=== PATIENT | female | born 1980 | race Caucasian/White ===

== ENCOUNTER → 2021-02-18 10:16 | Outpatient (BNVA) | payer BC, SELFPAY | PROVIDERS: PCP Nurse Practitioner Family; Visit Provider Nurse Practitioner Family | DX: R35.0 Frequency of micturition (principal); R39.15 Urgency of urination | CPT/HCPCS: 81003; 87086 ==

== ENCOUNTER 2021-07-05 17:06 | Emergency (ER) | payer BC, SELFPAY ==
[2021-07-05 17:15] VITALS: BMI 24.3
[2021-07-05 17:19] VITALS: BP 150/88; PULSE 109; RESP 20; TEMP 37; O2SAT 100
--- NOTE | 2021-07-05 17:47 | ECG_ITS ---
[facility] Test Date: 2021-07-05 Pat Name: FADUMO PARTIDA (GINA) Department: Room: Gender: Female Bureau Director: : 1980 Requested By: Anthony Null Order Number: [id number] Gretta MD: Daryn Coleman M.D. Measurements Intervals [place] Rate: 109 P: 52 WV: 196 QRS: 58 QRSD: 92 T: 23 QT: 334 QTc: 451 Interpretive Statements SINUS TACHYCARDIA ABNORMAL RHYTHM ECG No previous ECG available for comparison Electronically Signed On 07-06-2021 6:58:12 CORRESPONDENCE SCHOOL TEACHER by Daryn Coleman M.D. [id number]
--- NOTE | 2021-07-05 17:47 | ED_ITS ---
HPI - Dizziness General: Chief Complaint: Dizziness Stated Complaint: ANXIETY Time Seen by Provider: 07/05/21 17:28 History of Present Illness: HPI Narrative: Patient states he felt dizzy throughout the day while at work. Says she is been under a lot of stress. Patient went to the clinic and they did not have a provider there and the nurse called ambulance because patient complained about dizziness. Patient said she felt like she was going to pass out. Dizziness has been intermittent. Patient denies any other health problems here recently. Associated symptoms: Denies chest pain, chills, headache(s), nausea or vomiting Review of Systems Const: Denies: fever(s), chills or body aches Eyes: Denies: eye discomfort ENMT: Denies: throat pain Card: Denies: chest pain Resp: Denies: dyspnea GI: Denies: abdominal pain, nausea or vomiting Skin/Breast: Denies: rash Neuro: Reports: dizziness; Denies: headache(s) Psych: Denies: depression or suicidal ideation PFS ED PFSH: Surgical History (Updated 02/18/21 @ 10:25 by ALMA Alexander) Status post delivery Family History (Updated 02/18/21 @ 10:33 by ALMA Alexander) Mother Cancer Ovarian Cancer Unknown Cancer Ovarian Cancer Social History (Updated 02/18/21 @ 10:14 by Charito Steiner LPN) Smoking and tobacco status: never smoked Alcohol intake: current Physical Exam Const: COMMON NORMALS: no acute distress, patient oriented x3 and alert HENMT: COMMON NORMALS: normocephalic and external ears normal HEAD & SCALP: normocephalic EXTERNAL EAR: Yes external ears normal TYMPANIC MEMBRANE: TM abnormal TM laterality: left Details: bulging and fluid behind TM Eye: COMMON NORMALS: EOMs intact bilaterally Neck/C-Spine: COMMON NORMALS: no JVD Lymph: LYMPHATIC: lymphadenopathy left anterior cervical Resp: COMMON NORMALS: normal respiratory effort and No use of accessory muscles Cardio: COMMON NORMALS: no JVD RATE: tachycardic GI: INSPECTION: Yes normal to inspection Extremity: COMMON NORMALS: normal to inspection and full ROM Neuro: COMMON NORMALS: patient oriented x3 SENSORIUM/ORIENTATION: Yes alert SPEECH: speech normal GAIT: Yes Normal gait present PUPIL EXAM: Normal pupillary reactivity/response: bilateral Psych: COMMON NORMALS: mental status grossly normal Skin: COMMON NORMALS: no rashes or lesions noted GENERAL SKIN EXAM: no rashes or lesions noted Course Vital Signs: Vital signs: Vital Signs Temperature 98.6 F 07/05/21 17:19 Pulse Rate 109 H 07/05/21 17:19 Respiratory Rate 20 H 07/05/21 17:19 Blood Pressure 150/88 07/05/21 17:19 Pulse Oximetry 100 07/05/21 17:19 MDM - Dizziness Medical Decision Making Patient with anxiety, left otitis media, dizziness. Patient's vital signs stable except the patient was slightly tachycardic 109 bpm patient should not was seen at the clinic by the nurse and was sent here for dizziness. Patient said she been dizzy mostly. Patient has fluid in left ear has tenderness to the left ear into the left anterior cervical area. Said she has some dizziness with moving her head quickly. Patient try to take medication follow-up primary care provider on Thursday significant improvement. EKG Data EKG 1: Interpretation: Sinus tachycardia ventricular rate 109 bpm AR interval 196 ms QRS duration 92 ms QT is 334 ms. Discharge Plan Discharge Patient Disposition: Home Clinical Impression: Dizziness Otitis media Qualifiers: Otitis media type: serous Chronicity: acute Laterality: left Recurrence: non- recurrent Qualified Code(s): H65.02 - Acute serous otitis media, left ear Condition: Stable Prescriptions: New meclizine 25 mg tablet 25 mg PO TID PRN (Reason: dizziness) Qty: 14 0RF Bactrim DS 800-160 mg tablet 1 tab PO BID 7 Days Qty: 14 0RF No Action ciprofloxacin HCl [Cipro] 250 mg tablet 250 mg PO BID 5 Days Qty: 10 0RF Discharge Orders: Discharge ED (Routine); Ordered 07/05/21 Ordered By: Anthony Null Referrals: RONAK Winslow, COMPUTER TECHNICIAN [Primary Care Provider] - Discharge Diet: Usual diet Discharge Activity: Increase activity as tolerated Patient Instructions: Earache (ED), Dizziness (ED) Activity Restrictions/Additional Instructions: Follow-up with medical provider as directed. Take medications as prescribed. Return to the ER or your medical provider if condition worsens. Please read and understand discharge instructions. If any questions ask please. Coding Level of Care Code ED Tile Applicator for Chg Fwd Exam Comprehensive
[2021-07-05] MEDS: sulfamethoxazole-trimeth DS 160-800 mg Tablet 1 TAB PO (18:35)
[2021-07-05] MEDS: meclizine 25 mg tablet PO (18:35)
== END 2021-07-05 18:42 | disposition home or self-care (01) ==
PROVIDERS: Emergency Provider Nurse Practitioner Family; PCP Nurse Practitioner Family
DX: R42 Dizziness and giddiness (principal); H65.02 Acute serous otitis media, left ear
CPT/HCPCS: 93005; 99283; J8597

== ENCOUNTER → 2023-01-01 13:07 | Outpatient (BNVA) | payer OTHER, SELFPAY | PROVIDERS: PCP Nurse Practitioner; Visit Provider Nurse Practitioner Family | DX: U07.1 COVID-19 (principal); B34.9 Viral infection, unspecified | CPT/HCPCS: 87426 ==

== ENCOUNTER 2023-02-12 06:00 | Outpatient (RCR) | payer OTHER, SELFPAY | END 2023-03-10 23:59 | disposition home or self-care (01) | LOC: WPT 06:00 | PROVIDERS: Visit Provider Nurse Practitioner Family | DX: S93.401D Sprain of unspecified ligament of right ankle, subsequent encounter (principal); X58.XXXD Exposure to other specified factors, subsequent encounter | CPT/HCPCS: 97110; 97112; 97116; 97161; 97530 ==

== ENCOUNTER → 2024-08-03 10:33 | Outpatient (BNVA) | payer SELFPAY | PROVIDERS: PCP Nurse Practitioner Family; Visit Provider Nurse Practitioner Family | DX: R10.9 Unspecified abdominal pain (principal); K59.04 Chronic idiopathic constipation; R53.83 Other fatigue | CPT/HCPCS: 74018; 80074 ==

== ENCOUNTER 2024-08-04 06:32 | Emergency (ER) | payer SELFPAY ==
[2024-08-04 06:38] VITALS: BP 142/101; PULSE 79; RESP 18; TEMP 36.7; O2SAT 100; BMI 29.5
--- NOTE | 2024-08-04 06:50 | W.ED.DIZZY ---
HPI - Dizziness General: Chief Complaint: Dizziness Stated Complaint: dizziness/nausea Time Seen by Provider: 08/04/24 06:34 History of Present Illness: HPI Narrative: 43-year-old female who presents to the emergency room with complaints of dizziness and nausea. This been going on for several weeks. There is a note from the [facility] where she had some dizziness nausea near syncopal episode and was life flighted from the clinic to [facility] in [place]. There is a cardiac workup done by her description no significant findings she was started on metoprolol. Patient reports that she has had fever daily which she measured at 99.6 and 99.9. The dizziness is very positional. When I came in the room lab had already been there and had drawn blood she states her dizziness got much worse lab general utility maintenance repairer was sitting with the patient until I arrived. When I went to lay her down to do a portion of her exam she reports her symptoms worsened significantly. She denies any chest pain or abdominal pain. No bowel or bladder symptoms. Associated symptoms: Denies chest pain or chills Related Data Home Medications ?Medication ?Instructions ?Recorded ?Confirmed metoprolol tartrate 25 mg tablet 12.5 mg PO BID 07/06/24 08/04/24 acetaminophen 500 mg tablet 1,000 mg PO Q6H PRN Pain 08/04/24 08/04/24 (Tylenol Extra Strength) Previous Rx's ?Medication ?Instructions ?Recorded ferrous gluconate 324 mg (37.5 mg 324 mg PO DAILY 30 days #30 tabs 08/03/24 iron) tablet lorazepam 1 mg tablet (Ativan) 1 mg PO Q8H PRN dizziness or 08/04/24 vertigo #10 tabs Allergies Allergy/AdvReac Type Severity Reaction Status Date / Time No Known Allergies Allergy Verified 08/04/24 06:42 Review of Systems Const: Denies: fever(s) or chills Card: Denies: chest pain Resp: Denies: dyspnea GI: Denies: abdominal pain : Denies: dysuria, urinary frequency or urinary urgency Musc: Denies: neck pain or back pain Skin/Breast: Denies: rash Neuro: Reports: dizziness PFSH ED PFSH: Medical History Chronic idiopathic constipation Abdominal pain Iron deficiency anemia Fatigue Arrhythmia Orthostatic hypotension Palpitations Vertigo TMJ tenderness, bilateral Headache Encounter for screening for cardiovascular disorders Medication management Eustachian tube disorder Sinusitis Anxiety Surgical History Status post delivery Family History Mother Cancer Ovarian Cancer Unknown Cancer Ovarian Cancer Social History Smoking and tobacco/nicotine status: never used tobacco/nicotine Alcohol intake: current Substance/Drug Use: never Physical Exam Const: COMMON NORMALS: no acute distress GENERAL APPEARANCE: cooperative ORIENTATION/CONSCIOUSNESS: Yes awake, Yes oriented to person, Yes oriented to place and Yes oriented to time HENMT: COMMON NORMALS: normocephalic, atraumatic and hearing grossly normal bilaterally HEAD & SCALP: normocephalic and atraumatic OTHER: No nystagmus Resp: COMMON NORMALS: normal respiratory effort, No retractions, No use of accessory muscles and clear to auscultation bilaterally AUSCULTATION: clear to auscultation bilaterally Cardio: COMMON NORMALS: regular rate, regular rhythm and No murmurs present (Cardio) RATE: regular rate RHYTHM: regular rhythm GI: COMMON NORMALS: Soft to palpation and No hepatosplenomegaly present AUSCULTATION: Yes normoactive bowel sounds PALPATION: Yes Soft to palpation, No Tenderness to palpation present (GI), No Guarding due to palpation present (GI) and Yes No hepatosplenomegaly present Extremity: COMMON NORMALS: normal to inspection, capillary refill normal, no clubbing, cyanosis or edema, no calf tenderness and no pedal edema Neuro: SENSORIUM/ORIENTATION: Yes oriented to person, Yes oriented to place and Yes oriented to time Skin: COMMON NORMALS: no rashes or lesions noted GENERAL SKIN EXAM: no rashes or lesions noted Course Vital Signs: Vital signs: Vital Signs Temperature 98.0 F 08/04/24 06:38 Pulse Rate 88 08/04/24 12:39 Respiratory Rate 18 08/04/24 06:38 Blood Pressure 123/85 08/04/24 12:39 Pulse Oximetry 100 08/04/24 12:39 Oxygen Delivery Me thod Room Air 08/04/24 11:30 MDM - Dizziness Medical Decision Making Patient has not had any tachyarrhythmias. We got old records from her previous hospitalization there was concern of V. tach she was given amiodarone and flown to [facility] cardiology reviewed that they could felt it was more artifact and did not have any other recurrent arrhythmias. She has had no arrhythmias while she has been here. Her exam is otherwise unremarkable her symptoms are somewhat reproducible when moving her head she got improved with medications given will discharge patient home have her follow-up with her primary care doctor continue previously planned cardiology workup. Of interest her TSH is elevated and she was checked previously at [place] it was not increase it is now. This needs to be followed up as an outpatient as well Lab Data 08/04/24 06:59 08/04/24 06:59 Radiology Impressions Chest X-Ray 08/04/24 06:57 IMPRESSION: 1. Normal chest. Laboratory Results WBC 4.78 10^3/uL (3.29-11.43) 08/04/24 06:59 RBC 4.48 10^6/uL (3.85-5.65) 08/04/24 06:59 Hgb 10.60 g/dL (11.27-16.99) L 08/04/24 06:59 Hct 35.6 % (36-47) L 08/04/24 06:59 MCV 79.5 fl (85-98) L 08/04/24 06:59 MCH 23.7 pg (27-33) L 08/04/24 06:59 MCHC 29.8 g/dL (30-55) L 08/04/24 06:59 RDW 16.9 % (12.1-15.1) H 08/04/24 06:59 Plt Count 254 10^3/cmm (157-399) 08/04/24 06:59 MPV 11.5 fL (7.4-10.4) H 08/04/24 06:59 Neut % (Auto) 56.6 % 08/04/24 06:59 Lymph % (Auto) 34.9 % 08/04/24 06:59 Falls % (Auto) 5.6 % 08/04/24 06:59 Eos % (Auto) 2.1 % 08/04/24 06:59 Baso % (Auto) 0.6 % 08/04/24 06:59 Neut # (Auto) 2.70 10^3/uL (1.8-7.7) 08/04/24 06:59 Lymph # (Auto) 1.7 10^3/uL (0.8-4.8) 08/04/24 06:59 Falls # (Auto) 0.3 10^3/uL (0.2-0.9) 08/04/24 06:59 Eos # (Auto) 0.1 10^3/uL (0.0-0.8) 08/04/24 06:59 Baso # (Auto) 0.0 10^3/uL (0.0-0.1) 08/04/24 06:59 Nucleated RBC % (auto) 0 % 08/04/24 06:59 Nucleated RBCs # 0.0 /100WBC 08/04/24 06:59 Sodium 137 mmol/L (136-145) 08/04/24 06:59 Potassium 3.9 mmol/L (3.5-5.1) 08/04/24 06:59 Chloride 102 mmol/L (98-107) 08/04/24 06:59 Carbon Dioxide 21 mmol/L (22-29) L 08/04/24 06:59 Anion Gap 17.9 (5-19) 08/04/24 06:59 BUN 8 mg/dL (6-20) 08/04/24 06:59 Creatinine 0.7 mg/dL (0.5-0.9) 08/04/24 06:59 GFR Calculation 90.5 mL/min (90-130) 08/04/24 06:59 Glucose 95 mg/dL (65-115) 08/04/24 06:59 Calculated Osmolality 282 mOsm/kg (285-295) L 08/04/24 06:59 Calcium 9.0 mg/dL (8.5-10.5) 08/04/24 06:59 Total Bilirubin 0.5 mg/dL (0.15-1.2) 08/04/24 06:59 AST 18 U/L (0-32) 08/04/24 06:59 ALT 23 U/L (0-33) 08/04/24 06:59 Alkaline Phosphatase 102 U/L (35-105) 08/04/24 06:59 Troponin T Baseline < 6 ng/L (0-10) 08/04/24 06:59 Troponin T 120 Minute 6.00 ng/L (0-10) 08/04/24 09:09 Delta Troponin T 0.79371 ABS# (0-10) 08/04/24 09:09 Total Protein 7.5 g/dL (6.6-8.7) 08/04/24 06:59 Albumin 4.5 g/dL (3.5-5.2) 08/04/24 06:59 Globulin 3.0 g/dL (1.3-4.6) 08/04/24 06:59 TSH 4.65 uIU/mL (0.27-4.20) H 08/04/24 06:59 Urine Color Yellow (Yellow) 08/04/24 07:15 Urine Appearance Cloudy (CLEAR) A 08/04/24 07:15 Urine pH 7.5 (5-7) 08/04/24 07:15 Ur Specific [place] 1.005 (1.005-1.030) 08/04/24 07:15 Urine Protein Negative (Negative) 08/04/24 07:15 Urine Glucose (UA) Negative (Normal) 08/04/24 07:15 Urine Ketones Negative (Negative) 08/04/24 07:15 Urine Blood 1+ (Negative) A 08/04/24 07:15 Urine Nitrate Negative (Negative) 08/04/24 07:15 Urine Bilirubin Negative (Negative) 08/04/24 07:15 Urine Urobilinogen 0.2 mg/dL (Negative) 08/04/24 07:15 Ur Leukocyte Esterase Negative (Negative) 08/04/24 07:15 Urine RBC 0-2 /hpf (0-2) 08/04/24 07:15 Urine WBC 0-5 /hpf (0-5) 08/04/24 07:15 Ur Squamous Epith Cells 0-5 /hpf (0-5) 08/04/24 07:15 Amorphous Sediment Not Reportable 08/04/24 07:15 Urine Bacteria None seen /hpf (NONE) 08/04/24 07:15 Hyaline Casts 0-4 /lpf H 08/04/24 07:15 All radiology interpretation(s) finalized by discharge Discharge Plan Discharge Patient Disposition: Home Clinical Impression: Benign paroxysmal positional vertigo, Tachycardia, Elevated TSH Condition: Stable Prescriptions: New lorazepam [Ativan] 1 mg tablet 1 mg PO Q8H PRN (Reason: dizziness or vertigo) Qty: 10 0RF No Action metoprolol tartrate 25 mg tablet 12.5 mg PO BID ferrous gluconate 324 mg (37.5 mg iron) tablet 324 mg PO DAILY 30 Days Qty: 30 1RF acetaminophen [Tylenol Extra Strength] 500 mg Tablet 1,000 mg PO Q6H PRN (Reason: Pain) Discharge Orders: Discharge ED (Routine); Ordered 08/04/24 Ordered By: Davy Clay Referrals: RONAK Winslow, CUSTOMER RELATIONS COORDINATOR [Primary Care Provider] - Discharge Diet: Usual diet Discharge Activity: Increase activity as tolerated Patient Instructions: Benign Paroxysmal Positional Vertigo (ED), Opioid Safety, Pain Management Activity Restrictions/Additional Instructions: Thank you for choosing [facility] for your healthcare needs today. It is very important that you follow up as instructed or that you return to the Emergency Department should you have concerns or if your condition changes or worsens in any way. You were seen in the emergency room with complaint of dizziness and rapid heart rate. We obtained records from your previous evaluation at [facility] in [place] from a month ago and your life flighted from the [facility]. We reviewed the records. There was a concern of a rapid heart rate however cardiology is senior in [place] did not feel it was a significant arrhythmia ultimately were discharged from there with medications for the dizziness. Your symptoms today seem to be similar in nature as far as a irritation to the inner ear causing positional vertigo. You were given Ativan in the emergency room which did seem to improve it. We did note that in comparison to labs done at your hospitalization in [place] a month ago your hemoglobin is gone down by 1 g and your thyroid labs are slightly increased both of these should be followed up by your primary care doctor as an outpatient. You were given Ativan to use as needed for dizziness. Continue your other medications as previously prescribed. Print Language: Bulgarian Coding Level of Care Code ED Infant And Toddler Teacher for Asif Jenkins
--- NOTE | 2024-08-04 06:55 | ECG_ITS ---
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 Measurements Intervals [place] Rate: 76 P: 67 ID: [id number] QRS: 60 QRSD: 76 T: 38 QT: 362 QTc: 408 Interpretive Statements SINUS RHYTHM LOW QRS VOLTAGE IN PRECORDIAL LEADS [QRS DEFLECTION < 1.0 mV IN CHEST LEADS] NONSPECIFIC ST & T-WAVE ABNORMALITY Compared to ECG 07/05/2021 18:20:40 Low QRS voltage now present T-wave abnormality now present Sinus tachycardia no longer present Electronically Signed On 08-04-2024 22:21:10 CDT by Scottie Giron M.D. [id number] [id number]
--- NOTE | 2024-08-04 06:57 | XR_ITS ---
WS: [id number] Exam: XR chest 1V portable [id number] Date/Time of Exam: 08/04/2024 7:12 AM Reason For Exam: dyspnea/cough No priors. Lungs are fully expanded and clear. Normal cardiomediastinal silhouette and regional bony elements. No pleural effusion. XR/XR chest 1V portable [id number] IMPRESSION: 1. Normal chest.
[2024-08-04 07:13] LABS: Basophils % 0.6 %; Eosinophils # 0.1 10^3/uL (0.0-0.8); Eosinophils % 2.1 %; Hematocrit 35.6 % (36-47); Lymphocytes # 1.7 10^3/uL (0.8-4.8); Lymphocytes % 34.9 %; Mean Corpuscular HGB Conc 29.8 g/dL (30-55); Mean Corpuscular Hemoglobin 23.7 pg (27-33); Mean Corpuscular Volume 79.5 fl (85-98); Mean Platelet Volume 11.5 fL (7.4-10.4); Monocytes # 0.3 10^3/uL (0.2-0.9); Monocytes % 5.6 %; Neutrophils % 56.6 %; Nucleated Red Blood Cells % 0 %; Platelet Count 254 10^3/cmm (157-399); Red Blood Count 4.48 10^6/uL (3.85-5.65); Red Cell Distribution Width 16.9 % (12.1-15.1); White Blood Count 4.78 10^3/uL (3.29-11.43)
[2024-08-04] MEDS: LORazepam 2 mg Tablet PO (07:30)
[2024-08-04 07:37] LABS: Troponin(5th) Baseline < 6 ng/L (0-10)
[2024-08-04 07:41] LABS: Alanine Aminotransferase 23 U/L (0-33); Albumin Level 4.5 g/dL (3.5-5.2); Alkaline Phosphatase 102 U/L (35-105); Anion Gap 17.9 (5-19); Aspartate Amino Transferase 18 U/L (0-32); Blood Urea Nitrogen 8 mg/dL (6-20); Carbon Dioxide 21 mmol/L (22-29); Chloride 102 mmol/L (98-107); Creatinine Clr Calc Pharmacy 117.8226; Glomerular Filtration Rate 90.5 mL/min (90-130); Glucose 95 mg/dL (65-115); Osmolality Calculated 282 mOsm/kg (285-295); Potassium 3.9 mmol/L (3.5-5.1); Sodium 137 mmol/L (136-145); Thyroid Stimulating Hormone 4.65 uIU/mL (0.27-4.20); Total Bilirubin 0.5 mg/dL (0.15-1.2); Total Protein 7.5 g/dL (6.6-8.7)
[2024-08-04 08:41] VITALS: BP 139/98; PULSE 69; O2SAT 99
[2024-08-04 08:46] LABS: Bilirubin Urine Negative (Negative); Blood Urine 1+ (Negative); Glucose Urine UA Negative (Normal); Ketones Urine Negative (Negative); Leukocyte Esterase Urine Negative (Negative); Nitrate Urine Negative (Negative); Protein Urine Negative (Negative); Specific Gravity, Urine 1.005 (1.005-1.030); Urine Appearance Cloudy (CLEAR); Urine Color Yellow (Yellow); Urobilinogen Urine 0.2 mg/dL (Negative); pH Urine 7.5 (5-7)
[2024-08-04 08:51] LABS: Add Urine Microscopic? YES; Bacteria Urine None Seen /hpf; Hyaline Casts Urine 0-4 /lpf; RBC Urine 0-2 /hpf (0-2); Squamous Epithelial Cell Urine 0-5 /hpf (0-5); WBC Urine 0-5 /hpf (0-5)
--- NOTE | 2024-08-04 09:09 | ECG_ITS ---
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 Measurements Intervals [place] Rate: 78 P: 44 [place]: 195 QRS: 50 QRSD: 88 T: 12 QT: 366 QTc: 419 Interpretive Statements SINUS RHYTHM LOW QRS VOLTAGE IN PRECORDIAL LEADS [QRS DEFLECTION < 1.0 mV IN CHEST LEADS] NONSPECIFIC T-WAVE ABNORMALITY Compared to ECG 08/04/2024 07:05:48 No significant changes Electronically Signed On 08-04-2024 22:24:56 CDT by Scottie Giron M.D. [email or web address] [id number]
[2024-08-04 09:33] VITALS: BP 137/89; BP 138/89; BP 142/95; PULSE 110; PULSE 92; PULSE 97
[2024-08-04 09:42] LABS: Troponin 5 2HR Delta 0.00001 ABS# (0-10)
[2024-08-04 10:30] VITALS: BP 113/74; PULSE 63; O2SAT 98
[2024-08-04 11:30] VITALS: BP 106/73; PULSE 65; O2SAT 100
[2024-08-04 12:39] VITALS: BP 123/85; PULSE 88; O2SAT 100
== END 2024-08-04 12:40 | disposition home or self-care (01) ==
PROVIDERS: Emergency Provider Family Medicine; PCP Nurse Practitioner Family
DX: H81.10 Benign paroxysmal vertigo, unspecified ear (principal); R00.0 Tachycardia, unspecified; R94.6 Abnormal results of thyroid function studies
CPT/HCPCS: 36415; 71045; 80053; 81001; 84443; 84484; 85025; 93005; 99285; J9999

== ENCOUNTER → 2024-09-05 08:35 | Outpatient (BNVA) | payer BC, MEDICAID, SELFPAY | PROVIDERS: PCP Nurse Practitioner Family; Visit Provider Nurse Practitioner Family | DX: E07.9 Disorder of thyroid, unspecified (principal); R79.89 Other specified abnormal findings of blood chemistry | CPT/HCPCS: 83516; 84439; 84481; 86376 ==

== ENCOUNTER 2024-09-15 10:52 | Outpatient (CLI) | payer BC, MEDICAID, SELFPAY ==
--- NOTE | 2024-09-15 11:00 | MR_ITS ---
WS: [id number] MRI BRAIN WITH AND WITHOUT CONTRAST HISTORY: G44.52 - New daily persistent headache (NDPH) COMPARISON: None available. TECHNIQUE: Multiplanar imaging performed through the brain with MultiHance 20 ml's IV. No acute infarcts are seen. Jacobs-white matter differentiation is well preserved. Normal hippocampal formations. No susceptibility artifacts or prior lacunar infarcts. Ventricles and extra-axial spaces are normal. Clivus and pituitary gland are normal. Visualized posterior fossa and brainstem are also normal. Postcontrast images are negative for masses or vascular malformations. Dural venous sinuses are normal. Paranasal sinuses: Well aerated with no significant disease. Mastoid air cells: Normal. Calvarium and scalp: Normal. MR/MR head wo/w con [id number] IMPRESSION: 1. Normal MRI brain with contrast. 2. No significant atrophy and no small vessel disease or prior infarct.
[2024-09-15] MEDS: gadobenate dimeglumine 20 mL vial IV (11:43)
== END 2024-09-15 10:53 | disposition home or self-care (01) ==
LOC: RAD 10:54
PROVIDERS: PCP Nurse Practitioner Family; Visit Provider Nurse Practitioner Family
DX: G44.52 New daily persistent headache (NDPH) (principal); R20.0 Anesthesia of skin; R20.2 Paresthesia of skin
CPT/HCPCS: 70553

== ENCOUNTER 2024-09-25 12:36 | Emergency (ER) | payer BC, MEDICAID, SELFPAY ==
[2024-09-25] VITALS (7 sets, daily range): BP systolic 116–138; BP diastolic 70–78; PULSE 63–89; RESP 18; TEMP 36.6; O2SAT 98–100; BMI 29.2
--- NOTE | 2024-09-25 13:17 | XRR_ITS ---
PROCEDURE INFORMATION: Exam: XR Chest Exam date and time: 09/25/2024 1:38 PM Age: 43 years old Clinical indication: Pain; Chest pressure; Additional info: Chest pain; Near syncope episode TECHNIQUE: Imaging protocol: Radiologic exam of the chest. Views: 1 view. COMPARISON: CR XR chest 1V portable [id number] 08/04/2024 7:15 AM FINDINGS: Lungs: Unremarkable. No consolidation. Pleural spaces: Unremarkable. No pleural effusion. No pneumothorax. Heart/Mediastinum: Unremarkable. No cardiomegaly. Bones/joints: Unremarkable. XR/XR chest 1V portable [id number] IMPRESSION: No acute findings.
[2024-09-25 13:22] LABS: Basophils % 0.5 %; Eosinophils % 0.7 %; Hematocrit 42.5 % (36-47); Lymphocytes # 1.2 10^3/uL (0.8-4.8); Lymphocytes % 19.7 %; Mean Corpuscular HGB Conc 32.5 g/dL (30-55); Mean Corpuscular Hemoglobin 27.8 pg (27-33); Mean Corpuscular Volume 85.7 fl (85-98); Mean Platelet Volume 11.8 fL (7.4-10.4); Monocytes # 0.3 10^3/uL (0.2-0.9); Monocytes % 4.3 %; Neutrophils # 4.51 10^3/uL (1.8-7.7); Neutrophils % 74.6 %; Nucleated Red Blood Cells % 0 %; Platelet Count 192 10^3/cmm (157-399); Red Blood Count 4.96 10^6/uL (3.85-5.65); Red Cell Distribution Width 17.5 % (12.1-15.1); White Blood Count 6.04 10^3/uL (3.29-11.43)
--- NOTE | 2024-09-25 13:23 | ED_ITS ---
HPI - Chest Pain 2 General: Chief Complaint: Chest Pain Stated Complaint: chest pain; near syncope Time Seen by Provider: 09/25/24 13:17 Source: patient and EMS Mode of arrival: EMS Limitations: no limitations History of Present Illness: 43-year-old female states that she had h ad a near syncopal event today at 11 states she had felt lightheaded had some chest pressure and feeling she is in a pass out she actually passed out but states she almost passed out states she has had multiple episodes like this in the past has a cardiology appointment soon here due to. Denies any history of coronary disease denies any vomiting or diarrhea. She did have some nausea received Zofran and route Associated symptoms: Reports nausea; Deny abdominal pain, dyspnea, fever(s) or vomiting Related Data Home Medications ?Medication ?Instructions ?Recorded ?Confirmed metoprolol tartrate 25 mg tablet 12.5 mg PO BID 09/12/24 acetaminophen 500 mg tablet 1,000 mg PO Q6H PRN Pain 0 08/04/24 09/12/24 (Tylenol Extra Strength) Previous Rx's ?Medication ?Instructions ?Recorded ferrous gluconate 324 mg (37.5 mg 324 mg PO DAILY 30 d ays #30 tabs 08/03/24 iron) tablet Allergies Allergy/AdvReac Type Severity Reaction Status Date / Time No Known Allergies Allergy Verified 09/12/24 08:20 Review of Systems 2 Const: Denies: fever(s), chills, body aches or change in appetite ENMT: Denies: throat pain or dental pain Card: Reports: pre-syncope; Denies: chest pain Resp: Denies: dyspnea GI: Reports: nausea; Denies: abdominal pain, vomiting or diarrhea Musc: Denies: neck pain or back pain Skin/Breast: Denies: rash Neuro: Denies: headache(s) PFSH ED 2 PFSH: Medical History Anemia Thyroid dysfunction Numbness and tingling of upper and lower extremities of both sides Chronic idiopathic constipation Abdominal pain Iron deficiency anemia Fatigue Arrhythmia Orthostatic hypotension Palpitations Vertigo TMJ tenderness, bilateral Headache Encounter for screening for cardiovascular disorders Medication management Eustachian tube disorder Sinusitis Anxiety Surgical History Status post delivery Family History Mother Cancer Ovarian Cancer Unknown Cancer Ovarian Cancer Social History Smoking and tobacco/nicotine status: never used tobacco/nicotine Alcohol intake: current Substance/Drug Use: never Physical Exam 2 Const: COMMON NORMALS: no acute distress, patient oriented x3 and healthy appearing HENMT: COMMON NORMALS: normocephalic and atraumatic HEAD & SCALP: n ormocephalic and atraumatic Eye: COMMON NORMALS: conjunctivae normal CONJUNCTIVA: Yes conjunctivae normal Neck/C-Spine: COMMON NORMALS: full ROM and supple Chest: COMMONS NORMALS: normal inspection of the chest Resp: COMMON NORMALS: normal respiratory effort, No retractions, No use of accessory muscles and clear to auscultation bilaterally AUSCULTATION: clear to auscultation bilaterally Cardio: COMMON NORMALS: regular rate, regular rhythm and No murmurs present (Cardio) RATE: regular rate RHYTHM: regular rhythm GI: COMMON NORMALS: Normal to inspection, nondistended, normoactive bowel sounds present, Soft to palpation, non-tender and no masses PALPATION: Yes Soft to palpation Extremity: COMMON NORMALS: normal to inspection and full ROM Neuro: COMMON NORMALS: patient oriented x3, moves all extremities and no focal motor deficits Psych: COMMON NORMALS: mental status grossly normal, Normal thought process present and cooperative THOUGHT PROCESS: Normal thought process present Skin: COMMON NORMALS: no rashes or lesions noted and no wounds GENERAL SKIN EXAM: no rashes or lesions noted Course 2 Vital Signs: Vital signs: Vital Signs Temperature 97.9 F 09/25/24 12:38 Pulse Rate 84 09/25/24 15:00 Respiratory Rate 18 09/25/24 12:38 Blood Pressure 117/71 09/25/24 15:00 Pulse Oximetry 99 09/25/24 15:00 Oxygen Delivery Me thod Room Air 09/25/24 15:00 MDM - Chest Pain Medical Decision Making Patient presents for near syncopal event along with chest pain she has been well-appearing here blood pressure been normal blood work including initial repeat troponins are negative no signs of ACS she stable for discharge she has a cardiology appointment next month follow-up as scheduled return if worsening she understands agrees to plan Medical Records I reviewed the patient's medical records. Lab Data I reviewed the patient's lab results. 09/25/24 13:11 09/25/24 13:11 Radiology Impressions Chest X-Ray 09/25/24 13:17 IMPRESSION: No acute findings. Laboratory Results WBC 6.04 10^3/uL (3.29-11.43) 09/25/24 13:11 RBC 4.96 10^6/uL (3.85-5.65) 09/25/24 13:11 Hgb 13.80 g/dL (11.27-16.99) 09/25/24 13:11 Hct 42.5 % (36-47) 09/25/24 13:11 MCV 85.7 fl (85-98) 09/25/24 13:11 MCH 27.8 pg (27-33) 09/25/24 13:11 MCHC 32.5 g/dL (30-55) 09/25/24 13:11 RDW 17.5 % (12.1-15.1) H 09/25/24 13:11 Plt Count 192 10^3/cmm (157-399) 09/25/24 13:11 MPV 11.8 fL (7.4-10.4) H 09/25/24 13:11 Neut % (Auto) 74.6 % 09/25/24 13:11 Lymph % (Auto) 19.7 % 09/25/24 13:11 [place] % (Auto) 4.3 % 09/25/24 13:11 Eos % (Auto) 0.7 % 09/25/24 13:11 Baso % (Auto) 0.5 % 09/25/24 13:11 Neut # (Auto) 4.51 10^3/uL (1.8-7.7) 09/25/24 13:11 Lymph # (Auto) 1.2 10^3/uL (0.8-4.8) 09/25/24 13:11 [place] # (Auto) 0.3 10^3/uL (0.2-0.9) 09/25/24 13:11 Eos # (Auto) 0.0 10^3/uL (0.0-0.8) 09/25/24 13:11 Baso # (Auto) 0.0 10^3/uL (0.0-0.1) 09/25/24 13:11 Nucleated RBC % (auto) 0 % 09/25/24 13:11 Nucleated RBCs # 0.0 /100WBC 09/25/24 13:11 Sodium 137 mmol/L (136-145) 09/25/24 13:11 Potassium 3.7 mmol/L (3.5-5.1) 09/25/24 13:11 Chloride 103 mmol/L (98-107) 09/25/24 13:11 Carbon Dioxide 19 mmol/L (22-29) L 09/25/24 13:11 Anion Gap 18.7 (5-19) 09/25/24 13:11 BUN 11 mg/dL (6-20) 09/25/24 13:11 Creatinine 0.8 mg/dL (0.5-0.9) 09/25/24 13:11 GFR Calculation 77.6 mL/min (90-130) L 09/25/24 13:11 Glucose 96 mg/dL (65-115) 09/25/24 13:11 Calculated Osmolality 283 mOsm/kg (285-295) L 09/25/24 13:11 Calcium 9.8 mg/dL (8.5-10.5) 09/25/24 13:11 Total Bilirubin 0.4 mg/dL (0.15-1.2) 09/25/24 13:11 AST 37 U/L (0-32) H 09/25/24 13:11 ALT 36 U/L (0-33) H 09/25/24 13:11 Alkaline Phosphatase 103 U/L (35-105) 09/25/24 13:11 Troponin T Baseline < 6 ng/L (0-10) 09/25/24 13:11 Troponin T 120 Minute < 6.0 ng/L (0-10) 09/25/24 15:15 Delta Troponin T 0 ABS# (0-10) 09/25/24 15:15 Total Protein 7.6 g/dL (6.6-8.7) 09/25/24 13:11 Albumin 4.5 g/dL (3.5-5.2) 09/25/24 13:11 Globulin 3.1 g/dL (1.3-4.6) 09/25/24 13:11 HCG, Qual Negative (Negative) 09/25/24 13:11 All radiology interpretation(s) finalized by discharge EKG Data EKG 1: I personally reviewed and interpreted this EKG as follows: EKG interpretation date: 09/25/24 EKG interpretation time: 12:45 Interpretation: nsr hr [address] elevation qrs 90 qtc 408 Discharge Plan Discharge Patient Disposition: Home Clinical Impression: Chest pain, Near syncope Condition: Stable Prescriptions: No Action metoprolol tartrate 25 mg tablet 12.5 mg PO BID ferrous gluconate 324 mg (37.5 mg iron) tablet 324 mg PO DAILY 30 Days Qty: 30 1RF acetaminophen [Tylenol Extra Strength] 500 mg Tablet 1,000 mg PO Q6H PRN (Reason: Pain) Discharge Orders: Discharge ED (Routine); Ordered 09/25/24 Ordered By: Chai Peñaloza Referrals: RONAK Winslow, TECHNOLOGY EDUCATION TEACHER [Primary Care Provider, [facility]] Discharge Diet: Advance as tolerated Discharge Activity: Resume usual activity Patient Instructions: Chest Pain (ED), Near Syncope (ED) Print Language: Guyanese Coding Level of Care Code ED Wood Piler for Asif Jenkins
[2024-09-25 13:37] LABS: HCG, Serum Qual Negative (Negative)
[2024-09-25 13:42] LABS: Alanine Aminotransferase 36 U/L (0-33); Albumin Level 4.5 g/dL (3.5-5.2); Alkaline Phosphatase 103 U/L (35-105); Anion Gap 18.7 (5-19); Aspartate Amino Transferase 37 U/L (0-32); Blood Urea Nitrogen 11 mg/dL (6-20); Calcium 9.8 mg/dL (8.5-10.5); Carbon Dioxide 19 mmol/L (22-29); Chloride 103 mmol/L (98-107); Creatinine Clr Calc Pharmacy 102.5861; Globulin 3.1 g/dL (1.3-4.6); Glomerular Filtration Rate 77.6 mL/min (90-130); Glucose 96 mg/dL (65-115); Osmolality Calculated 283 mOsm/kg (285-295); Potassium 3.7 mmol/L (3.5-5.1); Sodium 137 mmol/L (136-145); Total Bilirubin 0.4 mg/dL (0.15-1.2); Total Protein 7.6 g/dL (6.6-8.7); Troponin(5th) Baseline < 6 ng/L (0-10)
[2024-09-25 15:51] LABS: Troponin 5 2HR < 6.0 ng/L (0-10); Troponin 5 2HR Delta 0 ABS# (0-10)
== END 2024-09-25 16:27 | disposition home or self-care (01) ==
PROVIDERS: Emergency Provider Emergency Medicine; PCP Nurse Practitioner Family
DX: R07.9 Chest pain, unspecified (principal); R55 Syncope and collapse; Z79.899 Other long term (current) drug therapy
CPT/HCPCS: 36415; 71045; 80053; 84484; 84703; 85025; 99285

== ENCOUNTER → 2024-09-28 16:33 | Outpatient (BNVA) | payer BC, MEDICAID, SELFPAY | PROVIDERS: PCP Nurse Practitioner Family; Visit Provider Nurse Practitioner Family | DX: G44.52 New daily persistent headache (NDPH) (principal); D64.9 Anemia, unspecified; E07.9 Disorder of thyroid, unspecified | CPT/HCPCS: 82728; 83550; 84146; 84443 ==

== ENCOUNTER 2024-10-28 09:36 | Outpatient (CLI) | payer BC, MEDICAID, SELFPAY ==
--- NOTE | 2024-10-28 | ECG_ITS ---
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 Interpretive Statements Lung unchanged pre/post procedure; Intraprocedure shortess of breath; Symptoms resoled by discharge PROCEDURE: The baseline electrocardiogram showed [normal sinus rhythm with some nonspecific ST-T changes in the inferior and lateral leads. At the baseline, the patient's blood pressure was 131/84 mm Hg with a heart rate of 96. The patient exercised for 3 minutes and 38 seconds on a standard Dennis protocol. Patient attained a maximum heart rate of 157 beats per minute(90% of the maximum predicted heart rate) with a blood pressure at the peak exercise of 166/55 mm Hg. The EKG at the peak exercise revealed no significant changes. Patient did not have any chest pain or any significant arrhythmis with the exercise Sestamibi was injected 1 minute prior to the peak exercise During the recovery phase, there were no new changes. Blood pressure at the end of the recovery phase was 127/85 mm Hg with a heart rate of 103 per minute. CONCLUSION: 1. No significant EKG changes with the [treadmill exercise 2. No exercise-induced chest pain or cardiac arrhythmia 3. Impaired exercise tolerance, attained a maximum of 7.0 METs 4. Sestamibi/Sestamibi perfusion results pending; see separate report. Electronically Signed On 10-30-2024 21:28:38 CDT by Scottie Giron M.D. [email or web address]
[2024-10-28 09:45] VITALS: BMI 29.2
--- NOTE | 2024-10-28 10:46 | NMCV_ITS ---
NM jacoby perf SPECT r/s* [id number] [place], [place] Age: 44 Gender: F : 1980 Exam Date: 10/28/2024 10:56 Ordering Phys: Scottie Giron MD ([email or web address]) Technologist: NEIL Velez Exam Location: [facility] Indications: cp STRESS TEST Please see separate stress test report in [facility] for full findings IMAGE PROTOCOL Rest/Stress 1 Exercise Day Radiopharmaceutical Dose (mCi) Administration Site Administered by Rest: Tc-99m 10.8 IV NEIL Velez Sestamibi Stress:Tc-99m 32.5 IV Louise Singh, RIGHT OF WAY APPRAISER Sestamibi Rest: 28-Oct-2024 60 Discovery 630 Stress: 28-Oct-2024 15 Discovery 630 Radiopharmaceutical was injected at 86 % maximum heart rate. Images obtained in supine and prone position. SPECT RESULTS Technical Quality: Good Raw Data Analysis: Normal Image Corrections: No attenuation or motion correction applied Summed Stress Score: 0 Summed Rest Score: 1 Summed Difference Score: 0 PERFUSION FINDINGS Uniform myocardial tracer uptake with no significant perfusion abnormalities FUNCTIONAL RESULTS (calculated via Gated SPECT) Stress Image LV EF (%): 87 Stress EDV (mL):61 TID: 0.6 Stress ESV (mL):8 FUNCTIONAL FINDINGS: Segmental wall motion analysis revealing no gross wall motion abnormalities IMPRESSIONS 1. Myocardial perfusion imaging revealing uniform myocardial tracer uptake with no significant perfusion abnormalities 2. Normal LV ejection fraction of 87% 3. LV wall motion analysis revealing no gross wall motion abnormalities. 4. Normal LV volume Low probability for coronary ischemia, based on the above findings Dr Scottie Giron MD FACC (Electronically Signed) Final Date: 28 October 2024 15:32 S
[2024-10-28 11:35] VITALS: BP 132/79; PULSE 103
== END 2024-10-28 09:37 | disposition home or self-care (01) ==
LOC: CDL 09:38
PROVIDERS: PCP Nurse Practitioner Family; Visit Provider Internal Medicine Cardiovascular Disease
DX: R07.9 Chest pain, unspecified (principal)
CPT/HCPCS: 36415; 78452; 93017; A9500

== ENCOUNTER → 2024-11-17 12:23 | Outpatient (BNVA) | payer BC, MEDICAID, SELFPAY | PROVIDERS: PCP Nurse Practitioner Family; Visit Provider Nurse Practitioner Women's Health | DX: N92.0 Excessive and frequent menstruation with regular cycle (principal); R93.89 Abnormal findings on diagnostic imaging of other specified body structures | CPT/HCPCS: 76830 ==

== ENCOUNTER 2024-12-07 11:05 | Outpatient (CLI) | payer BC, MEDICAID, SELFPAY ==
--- NOTE | 2024-12-07 11:40 | MM_ITS ---
WS: [id number] BILATERAL 3D TOMOSYNTHESIS DIGITAL SCREENING MAMMOGRAPHY WITH CAD CLINICAL INFORMATION: Z12.31 - Encounter for screening mammogram for malignant ... HISTORY: Screening mammogram. No current complaints. COMPARISON: Baseline TECHNIQUE: Bilateral CC and MLO views. FINDINGS: The breasts are composed of heterogeneous fibroglandular density tissue, which can limit the detection of small underlying mass lesions. No suspicious mass, asymmetry, calcifications, or architectural distortion. No evidence of malignancy. Benign calcification RIGHT breast. MM/MM [facility] tomosynthesis 61612 IMPRESSION: DENSITY: The breasts are heterogeneously dense, which may obscure small masses. BI-RADS: 2 - Benign FOLLOW UP: 1 Year Follow-up Recommend return to annual screening mammography.
== END 2024-12-07 11:06 | disposition home or self-care (01) ==
LOC: RAD 11:06
PROVIDERS: PCP Nurse Practitioner Family; Visit Provider Nurse Practitioner Family
DX: Z12.31 Encounter for screening mammogram for malignant neoplasm of breast (principal); D50.9 Iron deficiency anemia, unspecified; L84 Corns and callosities; R92.333 Mammographic heterogeneous density, bilateral breasts; E07.9 Disorder of thyroid, unspecified; N92.0 Excessive and frequent menstruation with regular cycle
CPT/HCPCS: 77063; 77067; 80053; 82306; 82607; 82728; 83550; 83921; 84439; 84443; 85025

== ENCOUNTER 2025-02-16 09:19 | Day surgery (SDC) | payer BC, MEDICAID, SELFPAY ==
[2025-02-16 09:35] VITALS: BP 138/102; PULSE 93; RESP 18; TEMP 36.3; O2SAT 100; BMI 30.1
--- NOTE | 2025-02-16 09:38 | P.ANESASSM_ITS ---
Pre-Anesthetic Assessment Height/Weight: Height 1.73 m Operation Date: 02/16/25 10:30 Proposed Procedures p Colonoscopy 44480 G0121 Z80.0 Z12.11(Not Applicable) - Trell Richter MD Familial anesthetic complications: none Was Beta Yash taken within 24 hours: Yes Was Clonidine taken within 24 hours: N/A Social No alcohol and No tobacco Exam alert and oriented x 3 Airway Submandibular: within normal limits Cervical ROM: within normal limits Mallampati: Class II Dentition: full History/ROS No significant history except as noted Pulmonary None reported CV/HEM Arrythmia None reported Hepatic None reported GI Gastroesophageal Reflux Disease Metabolic None reported Musc/skel None reported Neuropsych None reported Anesthetic Plan ASA status: 2 Anesthesia: Anesthesia Evaluation and MAC Risk of > 500 ml blood loss (7ml/kg in children): No Medications/Allergies Home Medications ?Medication ?Instructions ?Recorded ?Confirmed ?Last Taken ?Type ferrous gluconate 324 mg (37.5 mg 324 mg PO DAILY 30 d ays #30 tabs 08/03/24 02/13/25 02/15/25 19:00 Rx iron) tablet acetaminophen 500 mg tablet 1,000 mg PO Q6H PRN Pain 0 08/04/24 02/13/25 02/15/25 19:00 History (Tylenol Extra Strength) cholecalciferol (vitamin D3) 50 50 mcg PO DAILY 02/13/25 02/15/25 19:00 History mcg (2,000 unit) capsule famotidine 40 mg tablet (Pepcid) 40 mg PO DAILY 90 day s #90 tabs 01/25/25 02/13/25 02/15/25 19:00 Rx metoprolol tartrate 25 mg tablet 12.5 mg (1/2 x 25 mg) PO BID 90 01/25/25 02/13/25 02/16/25 06:00 Rx days #90 tabs ondansetron 8 mg disintegrating 8 mg PO Q8H PRN nausea and 02/03/25 02/13/25 02/15/25 19:00 Rx tablet vomiting #3 tabs ibuprofen 800 mg tablet 800 mg PO Q8H PRN Pain 02/1302/13/25 02/15/25 19:00 History Allergies Allergy/AdvReac Type Severity Reaction Status Date / Time No Known Allergies Allergy Verified 02/03/25:28 [facility] Anesthesia Medical History Family hx of colon cancer Colon cancer screening Spider bite Callus of foot Right foot Breast cancer screening by mammogram Menorrhagia with regular cycle Gastroesophageal reflux disease without esophagitis Syncope Iron deficiency anemia, unspecified iron deficiency anemia type Thyroid dysfunction Numbness and tingling of upper and lower extremities of both sides Chronic idiopathic constipation Abdominal pain Iron deficiency anemia Fatigue Arrhythmia Orthostatic hypotension Palpitations Vertigo TMJ tenderness, bilateral Headache Encounter for screening for cardiovascular disorders Medication management Eustachian tube disorder Sinusitis Anxiety Surgical History Status post delivery Family History Mother Cancer Ovarian Cancer Diabetes Hypertension Thyroid disease Unknown Cancer Ovarian Cancer Father Hyperlipidemia Hypertension Grandfather Hypertension Other Family hx of colon cancer Denies family history of Colon cancer Ovarian cancer Heart disease Breast cancer Uterine cancer Stroke Social History Smoking and tobacco/nicotine status: never used tobacco/nicotine Alcohol intake: current Substance/Drug Use: never Data Anesthesia Cardiac Studies: Sestamibi Stress Test (Cardiology) 10/28
[2025-02-16 09:40] LABS: OR HCG Qualitative Urine Negative (Negative)
--- NOTE | 2025-02-16 09:44 | W.PM.OPSUD ---
Surgery/Procedure H&P Update DATE OF PROCEDURE: February 16, 2025 DATE H&P PERFORMED: 02/03/25 H&P UPDATE INFORMATION: I have reviewed H&P completed within last 30 days, I have examined patient prior to procedure, No changes to prior documentation and Risks and benefits of the procedure reviewed PLANNED PROCEDURE: Operation Date: 02/16/25 10:30 Proposed Procedures p Colonoscopy 60578 G0121 Z80.0 Z12.11(Not Applicable) - Trell Richter MD
[2025-02-16 10:13] VITALS: BP 109/74; PULSE 81; RESP 18; TEMP 36.3; O2SAT 96
[2025-02-16 10:28] VITALS: BP 120/74; PULSE 73; RESP 18; O2SAT 100
[2025-02-16 10:42] VITALS: BP 125/70; PULSE 65; RESP 16; O2SAT 99
--- NOTE | 2025-02-16 10:56 | ANE.PACU2 ---
Inpatient post-anesthesia follow up: Airway intact: Yes Vital signs: Temperature 97.4 F Pulse Rate 65 Respiratory Rate 16 Blood Pressure 125/70 Pulse Oximetry 99 Oxygen Delivery Me thod Room Air Oxygen Flow Rate Fraction of Inspir ed Oxygen Hydration adequate: Yes Nausea and vomiting: No Pain level: 1 Mental status: Baseline
== END 2025-02-16 10:56 | disposition home or self-care (01) ==
PROVIDERS: Student in an Organized Health Care Education/Training Program; PCP Nurse Practitioner Family; Visit Provider Student in an Organized Health Care Education/Training Program
PROC: 0DJD8ZZ Inspection of Lower Intestinal Tract, Via Natural or Artificial Opening Endoscopic (ICD-10-PCS; CPT 45378; principal; 2025-02-16 10:30)
DX: Z12.11 Encounter for screening for malignant neoplasm of colon (principal); Z80.0 Family history of malignant neoplasm of digestive organs; Z85.3 Personal history of malignant neoplasm of breast; N92.0 Excessive and frequent menstruation with regular cycle; K21.9 Gastro-esophageal reflux disease without esophagitis; D50.9 Iron deficiency anemia, unspecified; E07.9 Disorder of thyroid, unspecified; K59.09 Other constipation; I49.9 Cardiac arrhythmia, unspecified; I95.1 Orthostatic hypotension; R00.2 Palpitations; Z80.41 Family history of malignant neoplasm of ovary
CPT/HCPCS: 45378; 81025; J2250; J2704; J7030

== ENCOUNTER → 2025-02-23 10:06 | Outpatient (BNVA) | payer BC, MEDICAID, SELFPAY | PROVIDERS: PCP Nurse Practitioner Family; Visit Provider Family Medicine | DX: Z01.818 Encounter for other preprocedural examination (principal); N92.0 Excessive and frequent menstruation with regular cycle; D50.9 Iron deficiency anemia, unspecified | CPT/HCPCS: 80053; 85025 ==

== ENCOUNTER 2025-03-21 10:44 | Inpatient (IN) | payer BC, MEDICAID, SELFPAY ==
--- NOTE | 2025-03-20 21:22 | W.PM.OPSFHP ---
Same Day Surgery H&P Indication for Procedure/HPI DATE OF PROCEDURE: March 20, 2025 CHIEF COMPLAINT/INDICATIONFOR SURGICAL PROCEDURE: chronic menorrhagia PREOP DIAGNOSIS: chronic menorrhagia PLANNED PROCEDURE: Operation Date: 03/21/25 08:30 Proposed Procedures p Total Abdominal Hysterectomy 68080 N92.0 D50.9(Not Applicable) - Mt Nunez MD Medications/Allergies* Home Medications ?Medication ?Instructions ?Recorded ?Confirmed ?Type acetaminophen 500 mg tablet 1,000 mg PO Q6H PRN Pain 08/04/24 03/20/25 History (Tylenol Extra Strength) cholecalciferol (vitamin D3) 50 50 mcg PO DAILY 12/08/24 03/20/25 History mcg (2,000 unit) capsule ibuprofen 800 mg tablet 800 mg PO Q8H PRN Pain 02/13/25 03/20/25 History meclizine 25 mg tablet 25 mg PO PRN 03/20/25 03/20/25 History Allergies/Adverse Reactions Allergy/AdvReac Type Severity Reaction Status Date / Time No Known Allergies Allergy Verified 02/03/25 10:28 Pertinent History/Comorbid Conditions* Medical History (Updated 02/23/25 @ 09:57 by Janak Cox MD) Family hx of colon cancer Colon cancer screening Spider bite Callus of foot Right foot Breast cancer screening by mammogram Menorrhagia with regular cycle Gastroesophageal reflux disease without esophagitis Syncope Iron deficiency anemia, unspecified iron deficiency anemia type Thyroid dysfunction Numbness and tingling of upper and lower extremities of both sides Chronic idiopathic constipation Abdominal pain Iron deficiency anemia Fatigue Arrhythmia Orthostatic hypotension Palpitations Vertigo TMJ tenderness, bilateral Headache Encounter for screening for cardiovascular disorders Medication management Eustachian tube disorder Sinusitis Anxiety Surgical History (Updated 02/18/21 @ 10:25 by ALMA Alexander) Status post delivery Family History (Updated 01/25/25 @ 09:50 by ALMA Alexander) Family hx of colon cancer Diabetes Mother Hyperlipidemia Father Cancer Mother Ovarian Cancer Unknown Ovarian Cancer Hypertension Mother Father Grandfather Thyroid disease Mother Denies family history of Colon cancer Ovarian cancer Heart disease Breast cancer Uterine cancer Stroke Social History Smoking and tobacco/nicotine status: never used tobacco/nicotine Alcohol intake: current Substance/Drug Use: never Pertinent Exam Findings alert, oriented x 3, clear to auscultation bilaterally and regular rate & rhythm Recommendations Surgery/Procedure today Coding Level of Care Code Acute Code for Chg Fwd
[2025-03-21] VITALS (18 sets, daily range): BP systolic 110–145; BP diastolic 75–105; PULSE 70–118; RESP 16–18; TEMP 36.3–37.1; O2SAT 95–100; BMI 30.1
--- NOTE | 2025-03-21 07:15 | ANES.PREANE2 ---
Pre-Anesthetic Assessment Height/Weight: Height 1.73 m Weight 89.811 kg Temp Pulse Resp BP Pulse Ox O2 Del Method 98.3 F 70 17 133/94 99 Room Air 03/21/25 06:53 03/21/25 06:53 03/21/25 06:53 03/21/25 06:53 03/21/25 06:53 03/21/25 06:53 Preop Diagnosis: menorrhagia Operation Date: 03/21/25 08:30 Proposed Procedures p Total Abdominal Hysterectomy 45441 N92.0 D50.9(Not Applicable) - Mt Nunez MD Familial anesthetic complications: None Was Beta Yash taken within 24 hours: N/A Was Clonidine taken within 24 hours: N/A Last intake: Intake Last Liquid Date 03/20/25 Last Liquid Time 18:00 Last Solid Date 03/20/25 Last Solid Time 18:00 Social No alcohol and No tobacco Exam alert, oriented x 3, clear to auscultation bilaterally and regular rate & rhythm Airway Mallampati: Class II Dentition: chipped and other (poor dentition ) CV/HEM Hypertension CP w/ negative cardiac work up GI Gastroesophageal Reflux Disease Anesthetic Plan ASA status: 2 Anesthesia: General Risk of > 500 ml blood loss (7ml/kg in children): No Medications/Allergies Home Medications ?Medication ?Instructions ?Recorded ?Confirmed ?Last Taken ?Type ferrous gluconate 324 mg (37.5 mg 324 mg PO DAILY 30 days #30 tabs 08/03/24 03/20/25 03/19/25 Rx iron) tablet acetaminophen 500 mg tablet 1,000 mg PO Q6H PRN Pain 08/04/24 03/20/25 03/19/25 History (Tylenol Extra Strength) cholecalciferol (vitamin D3) 50 50 mcg PO DAILY 12/08/24 03/20/25 03/20/25 History mcg (2,000 unit) capsule famotidine 40 mg tablet (Pepcid) 40 mg PO DAILY 90 days #90 tabs 01/25/25 03/20/25 03/19/25 Rx metoprolol tartrate 25 mg tablet 12.5 mg (1/2 x 25 mg) PO BID 90 01/25/25 03/21/25 03/21/25 Rx days #90 tabs ondansetron 8 mg disintegrating 8 mg PO Q8H PRN nausea and 02/03/25 03/20/25 02/15/25 19:00 Rx tablet vomiting #3 tabs ibuprofen 800 mg tablet 800 mg PO Q8H PRN Pain 02/13/25 03/20/25 03/19/25 History meclizine 25 mg tablet 25 mg PO PRN 03/20/25 03/20/25 03/13/25 History Allergies Allergy/AdvReac Type Severity Reaction Status Date / Time No Known Allergies Allergy Verified 02/03/25 10:28 [facility] Anesthesia Medical History Family hx of colon cancer Colon cancer screening Spider bite Callus of foot Right foot Breast cancer screening by mammogram Menorrhagia with regular cycle Gastroesophageal reflux disease without esophagitis Syncope Iron deficiency anemia, unspecified iron deficiency anemia type Thyroid dysfunction Numbness and tingling of upper and lower extremities of both sides Chronic idiopathic constipation Abdominal pain Iron deficiency anemia Fatigue Arrhythmia Orthostatic hypotension Palpitations Vertigo TMJ tenderness, bilateral Headache Encounter for screening for cardiovascular disorders Medication management Eustachian tube disorder Sinusitis Anxiety Surgical History Status post delivery Family History Mother Cancer Ovarian Cancer Diabetes Hypertension Thyroid disease Unknown Cancer Ovarian Cancer Father Hyperlipidemia Hypertension Grandfather Hypertension Other Family hx of colon cancer Denies family history of Colon cancer Ovarian cancer Heart disease Breast cancer Uterine cancer Stroke Social History Smoking and tobacco/nicotine status: never used tobacco/nicotine Alcohol intake: current Substance/Drug Use: never Female Reproductive History Date of last menstrual period: 03/10/25 Data Anesthesia Cardiac Studies: Sestamibi Stress Test (Cardiology) 10/28/24
--- NOTE | 2025-03-21 07:36 | W.PM.OPSUD ---
Surgery/Procedure H&P Update DATE OF PROCEDURE: March 21, 2025 DATE H&P PERFORMED: 03/20/25 H&P UPDATE INFORMATION: I have reviewed H&P completed within last 30 days, I have examined patient prior to procedure and No changes to prior documentation PREOP DIAGNOSIS: menorrhagia PLANNED PROCEDURE: Operation Date: 03/21/25 08:30 Proposed Procedures p Total Abdominal Hysterectomy 66893 N92.0 D50.9(Not Applicable) - Mt Nunez MD
[2025-03-21] MEDS: ceFAZolin 2,000 mg SDV 2000 MG IVP (08:15)
[2025-03-21] MEDS: metroNIDAZOLE IV 500 MG/100 ML PREMIX 100 MG IV (08:20)
[2025-03-21 08:32] LABS: OR HCG Qualitative Urine Negative (Negative)
--- NOTE | 2025-03-21 09:29 | SUR.OPER ---
0929 UPDATED FATHER IN WAITING AREA
[2025-03-21] MEDS: BUPivacaine 0.5% INJ 30 mL INJECTION (10:40)
[2025-03-21] MEDS: BUPivacaine liposome 13.3 mg/mL SDV 20 mL 266 MG INFILTRATI (10:40)
--- NOTE | 2025-03-21 10:52 | PM.OP2 ---
Brief Operative Note Date of procedure: 03/21/25 Pre-op diagnosis: menorrhagia Post-op diagnosis: same Procedure Done: total abdominal hysterectomy Surgeon: Mt Nunez Estimated blood loss (mL): 225 Complications: none Post-op Plan: floor
[2025-03-21] MEDS: fentaNYL 50 mcg/mL INJ 2mL IVP ×2 (11:05→11:20)
--- NOTE | 2025-03-21 11:35 | ANE.PACU2 ---
Inpatient post-anesthesia follow up: Airway intact: Yes Vital signs: Temperature 97.5 F Pulse Rate 95 Respiratory Rate 16 Blood Pressure 132/80 Pulse Oximetry 97 Oxygen Delivery Me thod Room Air Oxygen Flow Rate 8 Fraction of Inspir ed Oxygen Hydration adequate: Yes Nausea and vomiting: No Pain level: 1 Mental status: Baseline
--- NOTE | 2025-03-21 11:40 | PM.OP ---
Operative Report Date of procedure: March 21, 2025 Pre-op diagnosis: menorrhagia Post-op diagnosis: same Post-op findings: uterus normal-sized, boggy to palpation Normal fallopian tubes Normal ovaries Normal and intact bladder Procedure done: Total abdominal hysterectomy Bilateral salpingectomy Implants: none Specimens removed/disposition: uterus, fallopian tubes Surgeon: Mt Nunez MD Anesthesia: General Estimated blood loss (mL): 225 Complications: none Findings: see above Condition: stable Disposition: floor Brief History: 44 y.o. with chronic menorrhagia Procedure: The patient was taken to the operating room and placed supine on the table. General endotracheal anesthesia was induced. The abdomen was prepped and draped in the usual sterile fashion. A blas catheter was placed which drained clear urine. A pfannenstiel incision was made over an old scar and carried down through skin and subcutaneous tissue and fascia. The fascia was sharply incised. The rectus muscles were and the abdomen was entered bluntly in the midline. The pelvic contents were visualized and examined. An Casey-O retractor was placed. The bowels were packed out of the way. The Ligasure device was used throughout for vessel sealing and cutting. The hysterectomy was begun by dividing and ligating the round ligaments bilaterally. The infundibulopelvic ligaments were divided and skeletonized bilaterally. The ovaries were preserved by dividing the uterus from the uteroovarian ligaments. The vesicouterine peritoneal fold was incised in a transverse curvilinear fashion and sharply dissected downward mobilizing the bladder off the lower uterine segment. The uterine vessels were skeletonized and bilaterally divided and ligated. The procedure was carried down on both sides of the uterus until the cardinal uterosacral ligament was reached. The cervix was then incised. The vaginal cuff was identified and the mucosa was from the cervix. In this fashion, the uterus was removed leaving the vaginal cuff. The vaginal cuff was identified and the mucosa was sewn with O-Vicryl. The fallopian tubes were then removed using the Ligasure device. The ovaries were seen to be normal and intact. The pelvis was inspected and irrigated. Small amount of oozing from the cuff region was controlled using surgicell. The abdominal packs were removed as was the retractor. The fascia was then closed with a continuous stitch of O-Vicryl. The subcutaneous tissue was irrigated and inspected for hemostasis. The skin was then reapproximated using Insorb absorbable subcuticular skin jean. The patient was then placed supine, extubated, and taken to the recovery room. Postoperative condition: stable EBL: 225 cc Complications: none Sponge, needle, instruments counts were correct x two.
--- OUTSIDE RECORDS SUMMARY | 2025-03-21 19:43 | XMS_ITS | Clinical Summary ---
Author Organization [facility] Address [address] [place] [address] Phone Care Team Providers Care Practice Physician Name Role Phone Unavailable Primary Care Provider Unavailabl e Allergies No known active allergies Medications escitalopram oxalate (LEXAPRO) 5 mg tablet Take 10 mg by mouth daily. Active metoprolol tartrate (LOPRESSOR) 25 mg tablet Take 0.5 Tablets (12.5 mg) by mouth 2 times daily. 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 30 Patch Active ferrous gluconate 324 mg (38 mg iron) tablet Take 60 mg by mouth daily. Active meclizine (ANTIVERT) 25 mg tablet Take 1 Tablet (25 mg) by mouth every 6 hours as needed for Dizziness or Nausea. 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 Mild dehydration 04/17/2024 Cellulitis of right shoulder 09/06/2023 Spider bite 09/06/2023 Encounters Date Type Department Care Team Description 03/07/2025 External Device Data [facility]STRACTION Provider, Abstract 03/07/2025 External Device Data [facility]STRACTION Provider, Abstract 03/07/2025 External Device Data [facility] Provider, Abstract 03/06/2025 3:18 PM CDT - 03/06/2025 5:30 PM CDT Emergency [facility] Emergency Medicine [address] [place] [address] Fly Freire MD Nausea (Primary Dx); Dizziness, nonspecific Discharge Disposition: Home or Self Care 03/06/2025 Travel 02/21/2025 External Device Data [facility] ABSTRACTION Provider, Abstract 02/21/2025 External Device Data [facility]STRACTION Provider, Abstract 01/10/2025 External Device Data [facility]STRACTION Provider, Abstract 01/04/2025 External Device Data [facility] ABSTRACTION Provider, Abstract 01/03/2025 External Device Data [facility] ABSTRACTION Provider, Abstract 12/27/2024 External Device Data [facility] ABSTRACTION Provider, Abstract 12/20/2024 External Device Data [facility] ABSTRACTION Provider, Abstract from Last 3 Months Social History Tobacco Use Types Packs/Day Years Used Date Smoking Tobacco: Never Smokeless Tobacco: Never Tobacco Cessation:Counseling Given: Not Answered Alcohol Use Standard Drinks/Week Comments Not Currently 0 (1 standard drink = 0.6 oz pur e alcohol) quit 4 months ago Food Insecurity Answer Date Recorded Do you find you are eating l ess than you should because you can t pay for food? No 03/06/2025 Transportation Needs Answer Date Record ed Have you gone without health care because you didn t have a way to get there? Or worry about transportation for future doctor visits, pharmacy picking tech medication, etc.? No 2024 Housing Stability Answer Date Recorded Do you worry you won t have a steady place to sleep or struggle to pay rent or mortgage? No 03/06/2025 Utility Needs Answer Date Recorded Do you have difficulty payin g for utility costs (electric, water or gas bills)? No 03/06/2025 Medication Needs Answer Date Recorded Have you skipped taking medi cation due to cost or worry you can t afford new medications? No 03/06/2025 Feeling Safe Answer Date Recorded Are you in a relationship wi th someone who hurts you emotionally and/or physically? No 03/06/2025 Food Insecurity Answer Date Recorded Patient needs follow up regardin 09/13/2024 Transportation Needs Answer Date Record ed Patient needs follow up regardin 09/13/2024 Housing Stability Answer Date Recorded Social/Environmental Concerns No concerns Utility Needs Answer Date Recorded Patient needs follow up regardin 09/13/2024 Comments No Sex and Gender Information Value Date Recorded Sex Assigned at Not on file Legal Sex Female 11:03 AM CDT Gender Identity Not on file Sexual Orientation Not on file Last Filed Vital Signs Vital Sign Reading Time Taken Comments Blood Pressure 132/77 03/06/2025 5:00 PM CDT Pulse 70 03/06/2025 5:00 PM CDT Temperature 37.1 C (98.7 F) 03/06/2025 3:21 PM CDT Respiratory Rate 16 03/06/2025 5:00 PM CDT Oxygen Saturation 100% 03/06/2025 5:00 PM CDT Inhaled Oxygen Concentration - - Weight 90.2 kg (198 lb 12.8 oz) 03/06/2025 3:21 PM CDT Height 172.7 cm (5' 8 ) 03/06/2025 3:21 PM CDT Body Mass Index 30.23 03/06/2025 3:21 PM CDT Plan of Treatment Health Maintenance Due Date Last Done Comments Pre-Diabetes and Diabetes Screening 1978 DTAP/TDAP/TD VACCINES (1 - Tdap) 1997 HEPATITIS B VACCINES (1 of 3 - 19+ 3-dose series) 1997 HPV/Cotest (21-29) 10/19/1999 CERVICAL CANCER SCREENING 2008 HPV/Cotest (30-65) 2008 PAP SMEAR 2008 BREAST CANCER SCREENING 2018 COLORECTAL SCREENING 10/19/2023 Colorectal Cancer Screening 10/19/2023 FIT-DNA Q 3 years 10/19/2023 FIT/FOBT Q 1 year 10/19/2023 Flex Sig/CT Colonography Q 5 years 10/19/2023 INFLUENZA VACCINE (#1) 2024 HPV VACCINES Aged Out No longer eligi ble based on patient's age to complete this topic Procedures Procedure Name Priority Date/Time Associated Diagnosis Comments C-REACTIVE PROTEIN Stat 03/06/2025 4: 18 PM CDT COMPREHENSIVE METABOLIC PANEL Stat 03/06/2025 4:18 PM CDT CBC WITH DIFFERENTIAL Stat 03/06/2025 4:18 PM CDT HCG QUALITATIVE, URINE Stat 4:07 PM CDT URINALYSIS W/REFLEX MICROSCOPIC Stat 03/06/2025 4:07 PM CDT from Last 3 Months Results * (ABNORMAL) CBC WITH DIFFERENTIAL (03/06/2025 4:18 PM CDT) WBC 7.7 4.0 - 10.0 K/uL 03/06/2025 4:51 PM CDT [facility] RBC 4.41 3.93 - 5.22 M/uL 03/06/2025 4:51 PM [facility] HEMOGLOBIN 13.3 11.2 - 15.7 g/dL 03/06/2025 4:51 PM [facility] HEMATOCRIT 38.7 34.1 - 44.9 % 03/06/2025 4:51 PM [facility] MCV 87.8 79.4 - 94.8 fL 03/06/2025 4:51 PM [facility] MCH 30.2 25.6 - 32.2 pg 03/06/2025 4:51 PM [facility] MCHC 34.4 32.2 - 35.5 g/dL 03/06/2025 4:51 PM [facility] RDW 12.1 11.0 - 14.5 % 03/06/2025 4:51 PM [facility] RDW-STDEV 39.0 36.9 - 56.9 fL 03/06/2025 4:51 PM [facility] PLATELETS 168 163 - 337 K/uL 03/06/2025 4:51 PM [facility] MPV 11.7 10.0 - 14.8 fL 03/06/2025 4:51 PM [facility] NEUTROPHILS 80(H) 34 - 71 % 03/06/2025 4:51 PM [facility] LYMPHOCYTES 14(L) 19 - 52 % 03/06/2025 4:51 PM CDT [facility] MONOCYTES 4(L) 5 - 13 % 03/06/2025 4:51 PM T [facility] EOSINOPHILS 1 1 - 6 % 03/06/2025 4:51 PM T [facility] BASOPHILS 1 0 - 1 % 03/06/2025 4:51 PM T [facility] IMMATURE GRANULOCYTES 0 % 03/06/2025 4:51 PM CDT [facility] NEUTROPHIL ABSOLUTE 6.14(H) 1.56 - 6.13 K/uL 03/06/2025 4:51 PM T [facility] LYMPHOCYTE ABSOLUTE 1.11(L) 1.20 - 3.40 K/uL 03/06/2025 4:51 PM [facility] MONOCYTE ABSOLUTE 0.34 0.24 - 0.36 K/uL 03/06/2025 4:51 PM T [facility] EOSINOPHIL ABSOLUTE 0.06 0.04 - 0.36 K/uL 03/06/2025 4:51 PM T [facility] BASOPHILS ABSOLUTE 0.04 0.01 - 0.08 K/uL 03/06/2025 4:51 PM T [facility] IMMATURE GRANULOCYTES ABSOLUTE 0.03 K/uL 03/06/2025 4:51 PM [facility] Blood BLOOD SPECIMEN / Unknown Venipuncture / Unknown 03/06/2025 4:18 PM CDT 03/06/2025 4:39 PM CDT us Fly Freire MD HEMATOLOGY ORDERABLES Eveline lopez Result [facility] CLIA # [id number] [address] [place] [address] * (ABNORMAL) C-REACTIVE PROTEIN (03/06/2025 4:18 PM CDT) CRP 5.8(H) <5.0 mg/L 03/06/2025 5:01 PM CDT [facility] Blood BLOOD SPECIMEN / Unknown Venipuncture / Unknown 03/06/2025 4:18 PM CDT 03/06/2025 4:39 PM CDT Fly Freire MD CHEMISTRY ORDERABLES Final Result [facility] CLIA # [id number] [address] [place] [id number] * (ABNORMAL) COMPREHENSIVE METABOLIC PANEL (03/06/2025 4:18 PM CDT) SODIUM 138 136 - 145 mmol/L 03/06/2025 5:01 PM [facility] POTASSIUM 3.7 3.5 - 5.1 mmol/L 03/06/2025 5:01 PM [facility] CHLORIDE 107 98 - 107 mmol/L 03/06/2025 5:01 PM [facility] CO2 21(L) 22 - 29 mmol/L 03/06/2025 5:01 PM [facility] CALCIUM 9.0 8.6 - 10.0 mg/dL 03/06/2025 5:01 PM [facility] BUN 12 6 - 20 mg/dL 03/06/2025 5:01 PM [facility] CREATININE 0.92 0.51 - 0.95 mg/dL 03/06/2025 5:01 PM [facility] GLUCOSE 96 74 - 99 mg/dL 03/06/2025 5:01 PM [facility] TOTAL PROTEIN 6.9 6.6 - 8.7 g/dL 03/06/2025 5:01 PM [facility] ALBUMIN 4.0 3.5 - 5.2 g/dL 03/06/2025 5:01 PM [facility] BILIRUBIN TOTAL 0.5 0.0 - 1.2 mg/dL 03/06/2025 5:01 PM [facility] ALKALINE PHOSPHATASE 77 35 - 104 U/L 03/06/2025 5:01 PM [facility] AST 19 0 - 35 U/L 03/06/2025 5:01 PM T [facility] ALT 14 0 - 35 U/L 03/06/2025 5:01 PM [facility] GFR >60 >=60 mL/min/1.7 3 sq meter 03/06/2025 5:01 PM [facility] Comment:eGFR calculated with 2020 CKD-EPI equation. Vegetarian diet, extremely high or low muscle mass, and may affect results. Cystatin C with Glomerular Filtration Rate is a suitable alternative for these patients. ANION GAP 10 5 - 20 mmol/L 03/06/2025 5:01 PM [facility] Blood BLOOD SPECIMEN / Unknown Venipuncture / Unknown 03/06/2025 4:18 PM CDT 03/06/2025 4:39 PM CDT Fly Freire MD CHEMISTRY ORDERABLES Final Result [facility] CLIA # [id number] [address] [place] [id number] * URINALYSIS WITH REFLEX MICROSCOPIC (03/06/2025 4:07 PM CDT) COLOR UA Yellow Pale to Dark Yellow 03/06/2025 4:49 PM T [facility] CLARITY UA Clear Clear 03/06/2025 4:49 PM [facility] SPECIFIC GRAVITY UA 1.015 1.003 - 1.035 03/06/2025 4:49 PM [facility] PH UA 6.5 5.0 - 8.0 03/06/2025 4:49 PM [facility] LEUKOCYTE ESTERASE UA Negative Negative 03/06/2025 4:49 PM [facility] NITRITE UA Negative Negative 03/06/2025 4:49 PM [facility] PROTEIN UA Negative Negative 03/06/2025 4:49 PM T [facility] GLUCOSE UA Negative Negative 03/06/2025 4:49 PM T [facility] KETONES UA Negative Negative 03/06/2025 4:49 PM CDT [facility] UROBILINOGEN UA 0.2 <2.0 mg/dL 4:49 PM CDT [facility] BILIRUBIN UA Negative Negative 03/06/2025 4:49 PM CDT [facility] BLOOD UA Negative Negative 03/06/2025 4:49 PM CDT [facility] Urine URINE SPECIMEN OBTAINED BY CLEAN CATCH PROCEDURE / Unknown Collection / Unknown 03/06/2025 4:07 PM CDT 03/06/2025 4:39 PM CDT us Fly Freire MD URINE ORDERABLES Final Res ult Performing Organization Address City/[facility]/ZIP Co de Phone Number [facility] CLIA # [id number] [address] [place] [phone] * HCG QUALITATIVE, URINE (03/06/2025 4:07 PM CDT) HCG QUAL URINE Negative Negative 03/06/2025 4:54 PM CDT [facility] COLOR UA Yellow Pale to Dark Yellow 03/06/2025 4:54 PM CDT [facility] CLARITY UA Clear Clear 03/06/2025 4:54 PM CDT [facility] Urine URINE SPECIMEN OBTAINED BY CLEAN CATCH PROCEDURE / Unknown Collection / Unknown 03/06/2025 4:07 PM CDT 03/06/2025 4:39 PM CDT us Fly Freire MD URINE ORDERABLES Final Res ult [facility] CLIA # [id number] [address] [place] [phone] from Last 3 Months Insurance [employer] ([employer]) [facility] [employer] [facility] MEDICAID Advance Directives For more information, please contact: [phone] * Full Code (Latest Code Status on File) Date Activated Date Inactivated Comments 07/01/2024 3:56 PM 07/03/2024 2:31 PM
[2025-03-21] MEDS: HYDROcodone-acetaminophen 5-325 mg Tablet PO (19:53)
[2025-03-22] MEDS: HYDROcodone-acetaminophen 5-325 mg Tablet PO ×2 (02:08→09:24)
[2025-03-22 05:00] VITALS: BP 95/57; PULSE 74; TEMP 36.9; O2SAT 97
[2025-03-22 05:48] LABS: Hematocrit 32.6 % (36-47); Hemoglobin 10.60 g/dL (11.27-16.99); Mean Corpuscular HGB Conc 32.5 g/dL (30-55); Mean Corpuscular Hemoglobin 29.6 pg (27-33); Mean Corpuscular Volume 91.1 fl (85-98); Platelet Count 153 10^3/cmm (157-399); Red Blood Count 3.58 10^6/uL (3.85-5.65); White Blood Count 8.64 10^3/uL (3.29-11.43)
[2025-03-22 09:27] VITALS: BP 109/63; PULSE 80; RESP 16; TEMP 37; O2SAT 100
--- NOTE | 2025-03-22 12:05 | PM.OBGYPN ---
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: Interval history: c/o mild abdominal pain, relieved with pain medications eating, voiding, ambulating well no bleeding / discharge Vitals/I&O/Wt Last Vital Signs Temp 98.6 F 03/22/25 09:27 Pulse 80 03/22/25 09:27 Resp 16 03/22/25 09:27 BP 109/63 03/22/25 09:27 Pulse Ox 100 03/22/25 09:27 O2 Del Method Room Air 03/22/25 09:27 O2 Flow Rate 8 03/21/25 11:09 Physical Exam Narrative: Comfortable, in no distress Awake, alert Afebrile, VS normal Lungs: clear Cor: RRR Abd: soft, nondistended, nontender Incision clean and dry Ext: normal Urinary Catheter Management: Carrasco: Cath Placed During This Visit: yes, but has since been removed by the nurse Reason for Continuing Indwelling Catheter: Perioperative Use in Selected Surgeries Urinary Catheter Date of Insertion: 03/21/25 Urinary Catheter Time of Insertion: 08:40 Date Urinary Catheter Removed: 03/22/25 Time Urinary Catheter Discontinued: 05:12 Data 03/22/25 05:39 A&P Assessment and plan 1. S/P hysterectomy: s/p total abdominal hysterectomy, bilateral salpingectomy POD #1 Doing well Plan discharge to home Call / return if fever, chills, abdominal pain, bleeding f/u in one week PDMP PDMP Reviewed: Last Reviewed 03/22/25 14:01 EST by Mt Nunez MD Attestations Medical Necessity Statement*: patient s/p hysterectomy, plan to discharge to home today Coding Level of Care Code Acute Code for Chg Fwd Diagnoses S/P hysterectomy Z90.710
--- NOTE | 2025-03-22 13:05 | PM.OBGYDC ---
Discharge Providers OPERATING ROOM TECHNICIAN Date of Admission: 03/21/25 10:44 Date of Discharge: 03/22/25 Attending Provider at Admission: tM Nunez MD Attending Provider at Discharge: Mt Nunez MD Consults: none Primary OPERATING ROOM TECHNICIAN: Mt Nunez MD Primary Care Provider: ALMA Abreu Diagnoses at Discharge Discharge Diagnosis 1. S/P hysterectomy: Details from hospital stay: 44 y.o. with history of menorrhagia admitted for hysterectomy Total abdominal hysterectomy and bilateral salpingectomy were done without any complications patient did well postoperatively and was discharged to home on the first postoperative day Reason for Visit Reason for Visit: N92.0 Brief History: 44 y.o. with history of menorrhagia admitted for hysterectomy Hospital Course Hospital Course 44 y.o. with history of menorrhagia admitted for hysterectomy Total abdominal hysterectomy and bilateral salpingectomy were done without any complications patient did well postoperatively and was discharged to home on the first postoperative day Physical Exam Narrative: Comfortable, in no distress Awake, alert Afebrile, VS normal Lungs: clear Cor: RRR Abd: soft, nondistended, nontender Incision clean and dry Ext: normal Urinary Catheter Management: Carrasco: Cath Placed During This Visit: yes, but has since been removed by the nurse Reason for Continuing Indwelling Catheter: Perioperative Use in Selected Surgeries Urinary Catheter Date of Insertion: 03/21/25 Urinary Catheter Time of Insertion: 08:40 Date Urinary Catheter Removed: 03/22/25 Time Urinary Catheter Discontinued: 05:12 History History History 2 Term 2 0 Miscarriages/Ectopic 0 Living Children 2 Discharge Data Studies Completed and Pending Completed Studies During Hospitalization Category Date Time Status Pathology: Surgical [PTH] Routine Pth 03/21/25 10:28 Completed Laboratory Results WBC 8.64 10^3/uL (3.29-11.43) 03/22/25 05:39 RBC 3.58 10^6/uL (3.85-5.65) L 03/22/25 05:39 Hgb 10.60 g/dL (11.27-16.99) L 03/22/25 05:39 Hct 32.6 % (36-47) L 03/22/25 05:39 MCV 91.1 fl (85-98) 03/22/25 05:39 MCH 29.6 pg (27-33) 03/22/25 05:39 MCHC 32.5 g/dL (30-55) 03/22/25 05:39 RDW 12.1 % (12.1-15.1) 03/22/25 05:39 Plt Count 153 10^3/cmm (157-399) L 03/22/25 05:39 MPV 11.4 fL (7.4-10.4) H 03/22/25 05:39 Urine HCG, Qual Negative (Negative) 03/21/25 07:00 Blood Type O Positive 03/21/25 08:39 Rho(D) Type Rh positive 03/21/25 08:39 Antibody Screen Negative 03/21/25 08:39 Procedures Performed Total abdominal hysterectomy and bilateral salpingectomy Vitals Last Vital Signs Temp 98.6 F 03/22/25 09:27 Pulse 80 03/22/25 09:27 Resp 16 03/22/25 09:27 BP 109/63 03/22/25 09:27 Pulse Ox 100 03/22/25 09:27 O2 Del Method Room Air 03/22/25 09:27 O2 Flow Rate 8 03/21/25 11:09 Results Labs OB ([facility]): Blood Type O Positive 03/21/25 Antibody Screen Negative 03/21/25 Hct, (36-47) 41.7 % 04/24/25 Hgb, (11.27-16.99) 13.20 g/dL 04/24/25 Rho(D) Type Rh positive 03/21/25 Plt Count, (157-399) 193 10^3/cmm 04/24/25 Hep Bs Antigen, (Nonreactive) Non-reactive 08/03/24 Hep B Core IgM Ab, (Nonreactive) Non-reactive 08/03/24 Hepatitis C Antibody, (Nonreactive) Non-reactive 08/03/24 TSH, (0.27-4.20) 3.28 uIU/mL 04/24/25 Free T4, (0.82-1.77) 1.07 ng/dL 12/02/24 Hemoglobin A1c, (4.0-6.0) 5.1 % 07/19/24 HCG, Qual, (Negative) Negative 09/25/24 Prolactin, (4.8-23.3) 9.28 ng/mL 09/28/24 Discharge Plan Discharge Patient Disposition: Home Condition: Stable Prescriptions: Continued cholecalciferol (vitamin D3) 50 mcg (2,000 unit) capsule 50 mcg PO DAILY ferrous gluconate 324 mg (37.5 mg iron) tablet 324 mg PO DAILY 30 Days Qty: 30 1RF famotidine [Pepcid] 40 mg tablet 40 mg PO DAILY 90 Days Qty: 90 2RF metoprolol tartrate 25 mg tablet 12.5 mg PO BID 90 Days Qty: 90 2RF acetaminophen [Tylenol Extra Strength] 500 mg Tablet 1,000 mg PO Q6H PRN (Reason: Pain) meclizine 25 mg tablet 25 mg PO PRN ibuprofen 800 mg Tablet 800 mg PO Q8H PRN (Reason: Pain) No Action pseudoephedrine-acetaminophen 30-500 mg tablet PO DAILY Adult 50 Plus Probiotic 4 billion cell capsule PO promethazine-DM 6.25-15 mg/5 mL syrup 5 - 10 ml PO Q6H PRN (Reason: cough) Qty: 118 0RF doxycycline hyclate 100 mg tablet See Rx Instructions PO BID 21 Days Qty: 42 0RF Rx Instructions: 200mg now, then 100mg BID for 20days - Take with food Discharge Order = DC NOW: Discharge Order (Routine); Ordered 03/22/25 Ordered By: Mt Nunez Referrals: Mt Nunez MD [Physician, OPERATING ROOM TECHNICIAN] - 04/05/25 9:30 am Discharge Diet: Usual diet Discharge Activity: Increase activity as tolerated Patient Instructions: Oxycodone/Acetaminophen (By mouth) (Percocet), Acute Wound Care (DC), Opioid Safety (DC), Vaginal Hysterectomy (DC), OB Discharge Report, OB Food/Drug Interaction Guide, Opioid Safety, Post Anesthesia Care, Patient Portal & [place] Instructions Discharge Attestations OPERATING ROOM TECHNICIAN Time Spent in Discharge Care*: less than 30 min Coding Level of Care Code Acute Code for Chg Fwd Diagnoses S/P hysterectomy Z90.710
== END 2025-03-22 13:58 | disposition home or self-care (01) | DRG 513 ==
LOC: OBGYN 19:40
PROVIDERS: Admitting Provider Obstetrics & Gynecology; PCP Nurse Practitioner Family; Visit Provider Obstetrics & Gynecology
PROC: 0UT90ZZ Resection of Uterus, Open Approach (ICD-10-PCS; CPT 58150; principal; 2025-03-21 08:10)
PROC: 0UT90ZZ Resection of Uterus, Open Approach (ICD-10-PCS; CPT 58661; 2025-03-21 08:10)
DX: N92.0 Excessive and frequent menstruation with regular cycle (principal); I10 Essential (primary) hypertension; K21.9 Gastro-esophageal reflux disease without esophagitis
CPT/HCPCS: 36415; 51702; 81025; 85027; 86850; 86900; 88307; 96374; 96376; C1052; J0666; J0690; J1100; J1171; J1200; J1885; J2250; J2405; J2704; J3010; J3490; J7030; J7121; J9999

== ENCOUNTER → 2025-04-24 09:01 | Outpatient (BNVA) | payer BC, MEDICAID, SELFPAY | PROVIDERS: PCP Nurse Practitioner Family; Visit Provider Nurse Practitioner Family | DX: R10.9 Unspecified abdominal pain (principal); R14.0 Abdominal distension (gaseous); W57.XXXA Bitten or stung by nonvenomous insect and other nonvenomous arthropods, initial encounter; Z91.018 Allergy to other foods | CPT/HCPCS: 81003; 82306; 82785; 84443; 85025; 86001; 86003; 86008; 86160; 86618; 86666; 86668; 86757 ==